=== PATIENT | female | born 1985 | race Caucasian/White ===

== ENCOUNTER 2018-10-16 14:51 | Emergency (ER) | payer SELFPAY ==
[~2018-10-16] VITALS: Ht 154.9 cm; Wt 74.8 kg
--- NOTE | 2018-10-16 15:57 | NUR ---
Temperature Logging Operator assumes care. Hands off report received from TRESA Brice. Patient just came back from CT scan- AOX4, calm and breathing easily, NAD, pending results and disposition
--- NOTE | 2018-10-16 16:13 | NUR ---
Patient discharged to home in stable conditon. Written and verbal after care instructions given to patient. Patient verbalizes understanding of instructions.
== END 2018-10-16 16:16 | disposition home or self-care (01) ==
LOC: ER 14:51
DX: F07.81 Postconcussional syndrome (principal); F17.200 Nicotine dependence, unspecified, uncomplicated
CPT/HCPCS: 70450; 72125; A4663